=== PATIENT | male | born 1965 | race African-American/Black ===

== ENCOUNTER 2019-05-31 11:35 | Inpatient (IN) | payer BC ==
[~2019-05-31] VITALS: Ht 172.7 cm; Wt 87.7 kg
[2019-05-31 12:28] LABS: Hematocrit 45.8 % (41.0-53.0); Hemoglobin 15.2 g/dL (13.5-17.5); Mean Corpuscular Hgb Conc. 33.1 g/dL (32.0-36.0); Mean Corpuscular Volume 93.7 fL (80.0-100.0); Platelet Count (auto) 164 10^3/uL (140-450); Red Blood Cells 4.88 10^6/uL (4.5-5.90); Red Cell Distribution Width 13.7 % (11.8-14.3); White Blood Cell 9.7 10^3/uL (4.4-10.8)
[2019-05-31 12:33] LABS: Basophils % (manual) 0 (0.0-2.0); Blast Cells 0; Eosinophils % (manual) 0 (0-7); Metamyelocytes % 0; Myelocytes % 0; Promyelocytes % 0; Reactive Lymphocytes 0
[2019-05-31 12:43] LABS: Albumin 3.8 g/dL (3.4-5.0); Anion Gap 5 (5-15); Blood Urea Nitrogen 14 mg/dL (7-18); Calcium 9.1 mg/dL (8.5-10.1); Carbon Dioxide 28 mmol/L (21-32); Chloride 101 mmol/L (98-107); Glucose 82 mg/dL (74-106); Potassium 4.2 mmol/L (3.5-5.1); Sodium 134 mmol/L (136-145)
[2019-05-31 12:48] LABS: Alanine Aminotransferase 39 U/L (16-61); Alkaline Phosphatase 69 U/L (45-117); Aspartate Aminotransferase 35 U/L (15-37); BUN/Creatinine Ratio 9.3; Bilirubin, Total 0.4 mg/dL (0.2-1.0); GFR African American 62 mL/min; GFR Non-African American 51 mL/min; Total Protein 7.9 g/dL (6.4-8.2)
[2019-05-31 13:27] LABS: Band Neutrophils % (manual) 2; Lymphocytes % (manual) 9 (10.0-50.0); Monocytes % (manual) 6 (0-12)
[2019-05-31] MEDS ORDERED: ONDANSETRON HCL 4 MG/2 ML VIAL IV PRN (14:45)
[2019-05-31] MEDS ORDERED: VANCOMYCIN PER PHARMACY 0 MG IV SCH (14:45)
[2019-05-31] MEDS ORDERED: HYDROcodone-ACET 5/325MG TAB PO PRN (14:45)
[2019-05-31] MEDS ORDERED: MORPHINE SULF INJ 2 MG/ML SYRINGE 1ML IV PRN ×2 (14:45)
[2019-05-31] MEDS ORDERED: IPRATROPIUM BROM 0.5 MG/2.5ML INH SOL NEB SCH (14:45)
[2019-05-31] MEDS ORDERED: ACETAMINOPHEN 500 MG TAB PO PRN (14:45)
[2019-05-31] MEDS ORDERED: NITROGLYCERIN 0.4 MG SL TAB SL PRN (14:45)
[2019-05-31] MEDS ORDERED: AZITHROMYCIN 500MG/ 250ML 250 ML IV SCH ×2 (15:00→16:00)
[2019-05-31] MEDS: cefTRIAXone 1GM/50ML D5W 50 ML IV SCH (15:18)
[2019-05-31] MEDS: FLUCONAZOLE 100 MG TAB PO SCH (15:18)
[2019-05-31] MEDS: ALBUTEROL SULF 2.5 MG/0.5ML(0.5%) NEB SOLN NEB SCH (18:00)
[2019-05-31 18:30] VITALS: BP 184/104
[2019-05-31] MEDS: VANCOMYCIN 1GM/250ML 250 ML IV SCH (18:39)
[2019-05-31] MEDS: AZITHROMYCIN 500MG/ 250ML 250 ML IV SCH (20:00)
[2019-05-31] MEDS: SODIUM CHLORIDE 0.9% 1,000 ML IV SCH (20:25)
[2019-05-31 20:48] VITALS: BP 152/90
[2019-05-31 21:56] VITALS: BP 152/90
[2019-06-01] VITALS (7 sets, daily range): BP systolic 134–160; BP diastolic 85–105
[2019-06-01] MEDS: IPRATROPIUM BROM 0.5 MG/2.5ML INH SOL NEB SCH ×2 (00:12→20:09)
[2019-06-01] MEDS: BUDESONIDE (INHALATION) 0.5 MG/2 ML NEB NEB SCH (00:13)
[2019-06-01] MEDS: SODIUM CHLORIDE 0.9% 1,000 ML IV SCH ×3 (04:29→20:45)
[2019-06-01 06:32] LABS: Basophils # (auto) 0 uL; Basophils % (auto) 1.1 % (0.0-2.0); Eosinophils # (auto) 0 uL; Hematocrit 42.9 % (41.0-53.0); Hemoglobin 14.8 g/dL (13.5-17.5); Lymphocytes # (auto) 0.8 uL; Lymphocytes % (auto) 18.5 % (10.0-50.0); Mean Corpuscular Hemoglobin 32.1 pg (28.0-32.0); Mean Corpuscular Hgb Conc. 34.5 g/dL (32.0-36.0); Monocytes # (auto) 0.7 uL; Monocytes % (auto) 17.9 % (0.0-12.0); Neutrophils # (auto) 2.6 uL; Neutrophils % (auto) 62.5 % (37.0-80.0); Nucleated Red Blood Cells % 0.1 %; Platelet Count (auto) 145 10^3/uL (140-450); Red Blood Cells 4.61 10^6/uL (4.5-5.90); Red Cell Distribution Width 13.4 % (11.8-14.3); White Blood Cell 4.1 10^3/uL (4.4-10.8)
[2019-06-01 06:50] LABS: Calcium 8.7 mg/dL (8.5-10.1)
[2019-06-01 06:55] LABS: BUN/Creatinine Ratio 13.1
[2019-06-01] MEDS: VANCOMYCIN 1GM/250ML 250 ML IV SCH ×2 (08:30→22:28)
[2019-06-01] MEDS: ENOXAPARIN SOD 40 MG/0.4 ML SYRINGE SC SCH (10:00)
[2019-06-01] MEDS: FLUCONAZOLE 100 MG TAB PO SCH (11:13)
[2019-06-01] MEDS: cefTRIAXone 1GM/50ML D5W 50 ML IV SCH (11:13)
[2019-06-01] MEDS: amLODIPine BESYLATE 5 MG TAB PO SCH (11:13)
[2019-06-01] MEDS: FAMOTIDINE 20 MG TAB PO SCH (11:14)
[2019-06-01] MEDS: OSELTAMIVIR 30 MG CAP PO SCH (11:14)
[2019-06-01] MEDS: ALBUTEROL SULF 2.5 MG/0.5ML(0.5%) NEB SOLN NEB SCH (20:09)
[2019-06-01] MEDS: AZITHROMYCIN 500MG/ 250ML 250 ML IV SCH (20:36)
[2019-06-02 04:55] VITALS: BP 130/79
[2019-06-02] MEDS: SODIUM CHLORIDE 0.9% 1,000 ML IV SCH (06:33)
[2019-06-02] MEDS: IPRATROPIUM BROM 0.5 MG/2.5ML INH SOL NEB SCH ×2 (07:10→12:04)
[2019-06-02] MEDS: BUDESONIDE (INHALATION) 0.5 MG/2 ML NEB NEB SCH (07:10)
[2019-06-02] MEDS: ALBUTEROL SULF 2.5 MG/0.5ML(0.5%) NEB SOLN NEB SCH ×2 (07:10→12:04)
[2019-06-02 09:00] VITALS: BP 150/95
[2019-06-02] MEDS: ENOXAPARIN SOD 40 MG/0.4 ML SYRINGE SC SCH (10:00)
[2019-06-02] MEDS: OSELTAMIVIR 30 MG CAP PO SCH (10:13)
[2019-06-02] MEDS: amLODIPine BESYLATE 5 MG TAB PO SCH (10:14)
[2019-06-02] MEDS: FLUCONAZOLE 100 MG TAB PO SCH (10:15)
[2019-06-02] MEDS: FAMOTIDINE 20 MG TAB PO SCH (10:15)
[2019-06-02] MEDS: cefTRIAXone 1GM/50ML D5W 50 ML IV SCH (10:16)
[2019-06-02] MEDS: VANCOMYCIN 1GM/250ML 250 ML IV SCH (12:00)
[2019-06-02 12:01] VITALS: BP 150/95
== END 2019-06-02 13:00 | disposition home or self-care (01) | DRG 193 ==
LOC: ER 11:35 → TELE 11:36 → TELE-WESTW 20:28
PROVIDERS: ADMIT Nurse Practitioner Acute Care; ATTEND Family Medicine
DX: J10.00 Influenza due to other identified influenza virus with unspecified type of pneumonia (principal); J96.01 Acute respiratory failure with hypoxia; B38.0 Acute pulmonary coccidioidomycosis; E66.9 Obesity, unspecified; F17.210 Nicotine dependence, cigarettes, uncomplicated; I12.9 Hypertensive chronic kidney disease with stage 1 through stage 4 chronic kidney disease, or unspecified chronic kidney disease; N18.3 Chronic kidney disease, stage 3 (moderate); Z68.31 Body mass index [BMI] 31.0-31.9, adult; Z83.3 Family history of diabetes mellitus; Z82.49 Family history of ischemic heart disease and other diseases of the circulatory system; Z80.9 Family history of malignant neoplasm, unspecified; I16.0 Hypertensive urgency; R91.8 Other nonspecific abnormal finding of lung field
CPT/HCPCS: 36415; 71045; 71046; 71250; 80048; 80053; 80202; 83605; 84484; 85007; 85025; 85027; 86635; 86703; 86738; 87040; 87081; 87278; 87804; 94640; 96365; 96367; 96375; G0378; G9035; J0696

== ENCOUNTER 2023-01-23 19:10 | Emergency (ER) | payer BC ==
[~2023-01-23] VITALS: Ht 172.7 cm; Wt 96.3 kg
[2023-01-23] MEDS ORDERED: KETOROLAC TROMETH 60MG/2ML VIAL IM ONE (21:30)
[2023-01-23 22:06] LABS: Basophils # (auto) 0.1 10 ^3/uL (0-0.2); Basophils % (auto) 1.2 % (0.0-2.0); Eosinophils # (auto) 0.3 10 ^3/uL (0-0.8); Lymphocytes # (auto) 2.1 10 ^3/uL (0.4-5.4); Lymphocytes % (auto) 40.6 % (10.0-50.0); Mean Corpuscular Hemoglobin 30.7 pg (28.0-32.0); Mean Corpuscular Hgb Conc. 33.4 g/dL (32.0-36.0); Mean Corpuscular Volume 91.7 fL (80.0-100.0); Monocytes # (auto) 0.4 10 ^3/uL (0-1.3); Monocytes % (auto) 7.6 % (0.0-12.0); Neutrophils # (auto) 2.4 10 ^3/uL (1.6-8.6); Neutrophils % (auto) 45.6 % (37.0-80.0); Nucleated Red Blood Cells % 0.1 %; Red Cell Distribution Width 14.3 % (11.8-14.3); White Blood Cell 5.2 10^3/uL (4.4-10.8)
[2023-01-23 22:24] LABS: Alanine Aminotransferase 22 U/L (7-40); Albumin 4.6 g/dL (3.2-4.8); Alkaline Phosphatase 77 U/L (46-116); Anion Gap 6 (5-15); Aspartate Aminotransferase 8 U/L (13-40); BUN/Creatinine Ratio 11.7 (10.0-20.0); Blood Urea Nitrogen 15 mg/dL (9-23); Calcium 9.6 mg/dL (8.7-10.4); Carbon Dioxide 25 mmol/L (20-30); Chloride 108 mmol/L (98-107); Glucose 102 mg/dL (74-106); Lipase 55 U/L (12-53); Potassium 4.1 mmol/L (3.5-5.1); Sodium 139 mmol/L (136-145)
[2023-01-23 22:25] LABS: Bilirubin, Total 0.3 mg/dL (0.2-1.0); Total Protein 7.5 g/dL (5.7-8.2)
[2023-01-24] MEDS ORDERED: IBUP-1456 PO (02:40)
[2023-01-24] MEDS ORDERED: POLY335015 PO (02:40)
[2023-01-24 02:48] VITALS: BP 147/93; PULSE 79; RESP 16; TEMP 98.9; O2SAT 95
== END 2023-01-24 03:20 | disposition home or self-care (01) ==
LOC: ER 19:10
DX: S27.321A Contusion of lung, unilateral, initial encounter (principal); K59.00 Constipation, unspecified; K44.9 Diaphragmatic hernia without obstruction or gangrene; I10 Essential (primary) hypertension; F17.210 Nicotine dependence, cigarettes, uncomplicated; Z88.0 Allergy status to penicillin; X58.XXXA Exposure to other specified factors, initial encounter; Y93.89 Activity, other specified; Y92.89 Other specified places as the place of occurrence of the external cause; Y99.8 Other external cause status
CPT/HCPCS: 36415; 71101; 71250; 74150; 80053; 83690; 85025; 96372; 99285; J1885

== ENCOUNTER 2024-02-24 18:51 | Emergency (ER) | payer BC ==
[~2024-02-24] VITALS: Ht 172.7 cm; Wt 95.0 kg
[~2024-02-24 18:51] MED LIST: IBUP-1456 PO; POLY335015 PO
--- NOTE | 2024-02-24 19:38 | ED.PDOC ---
History of Present Illness HPI Comments 58-year-old male who came to ER for headaches. Patient does have history of hypertension and dyslipidemia. States for the past few hours he has been having, throbbing, constant frontal headaches, associated blurring of vision, dizziness, nausea, vomiting, chest discomfort. States his blood pressure is elevated, SBP >160 at home. Persistence of symptoms prompted patient to come to the ER. Chief Complaint: Headaches Time Seen by MD: 19:37 Primary Care Provider: DIAZ Reviewed Notes: Nurses Notes Allergies: Coded Allergies: Penicillins (Verified Allergy, Severe, 05/31/19) Home Meds Active Scripts Ibuprofen (Ibuprofen) 800 Mg Tab, 1 TAB PO TID PRN for 14 Days, #42 TAB 1 Refill Prov:REY BAKER [employer]LESS SALES REPRESENTATIVE 01/24/23 Polyethylene Glycol 3350 (Miralax) 17 Gm Pow, 17 GM PO DAILY for 5 Days, #5 POW Prov:REY BAKER [employer]LESS SALES REPRESENTATIVE 01/24/23 Information Source: Patient Mode of Arrival: Wheelchair Severity: Moderate Timing: Hours Duration: Since onset Prehospital treatment: None Past Medical History PAST MEDICAL HISTORY: High Lipids, HTN Surgical History: Denies all surgeries Family History Family History: Family hx of DM, Family hx of Cancer, Family hx of HTN Social History Smoker: Cigarettes Alcohol: Occasionally Drugs: Denies Drug Use Lives In: Home Constitutional: reports: weakness; denies: chills, diaphoresis, fatigue, fever, malaise, sweats, others EENTM: reports: blurred vision; denies: double vision, ear bleeding, ear discharge, ear drainage, ear pain, ear ringing, eye pain, eye redness, hearing loss, mouth pain, mouth swelling, nasal discharge, nose bleeding, nose congestion, nose pain, photophobia, tearing, throat pain, throat swelling, voice changes, others Respiratory: denies: cough, hemoptysis, orthopnea, SOB at rest, shortness of breath, SOB with excertion, stridor, wheezing, others Cardiovascular: reports: chest pain; denies: dizzy spells, diaphoresis, Dyspnea on exertion, edema, irregular heart beat, left arm pain, lightheadedness, palpitations, PND, syncope, others Gastrointestinal: reports: nausea, vomiting; denies: abdomen distended, abdominal pain, blood streaked bowels, constipated, diarrhea, dysphagia, difficulty swallowing, hematemesis, melena, poor appetite, poor fluid intake, rectal bleeding, rectal pain, others Genitourinary: denies: burning, dysuria, flank pain, frequency, hematuria, incontinence, penile discharge, penile sore, pain, testicle pain, testicle swelling, urgency, others Neurological: reports: dizziness, headache; denies: fainting, left sided numbness, left sided weakness, numbness, paresthesia, pre-existing deficit, right sided numbness, right sided weakness, seizure, speech problems, tingling, tremors, weakness, others Musculoskeletal: denies: back pain, gout, joint pain, joint swelling, muscle pain, muscle stiffness, neck pain, others Integumetry: denies: bruises, change in color, change in hair/nails, dryness, laceration, lesions, lumps, rash, wounds, others Allergic/Immunocompromised: denies: Difficulty Healing, Frequent Infections, Hives, Itching, others Hematologic/Lymphatic: denies: anemia, blood clots, easy bleeding, easy bruising, swollen glands, others Endocrine: denies: excessive hunger, excessive sweating, excessive thirst, excessive urination, flushing, intolerance to cold, intolerance to heat, unexplained weight gain, unexplained weight loss, others Psychiatric: denies: anxiety, bipolar disorder, depression, hopeless, panic disorder, schizophrenia, sleepless, suicidal, others Physical Exam General Appearance: No Apparent Distress, Normal HEENT: Normal ENT Inspection, Pharynx Normal, TMs Normal Neck: Full Range of Motion, Non-Tender, Normal, Normal Inspection Respiratory: Chest Non-Tender, Lungs Clear, No Accessory Muscle Use, No Respiratory Distress, Normal Breath Sounds Cardiovascular: No Edema, No JVD, No Murmur, No Gallop, Normal Peripheral Pulses, Regular Rate/Rhythm Breast Exam: Deferred Gastrointestinal: No Organomegaly, Non Tender, No Pulsatile Mass, Normal Bowel Sounds, Soft Genitalia: Deferred Pelvic: Deferred Rectal: Deferred Extremities: No calf tenderness, Normal capillary refill, Normal inspection, Normal range of motion, Non-tender, No pedal edema Musculoskeletal : Apperance: Normal Neurologic: Alert, nursing professor II-XII nml as Tested, No Motor Deficits, Normal Affect, Normal Mood, No Sensory Deficits Cerebellar Function: Normal Reflexes: Normal Skin: Dry, Normal Color, Warm Lymphatic: No Adenopathy Was a procedure done? Was a procedure done?: No Differential Dx Considerations may include: Anemia, electrolyte imbalance, vertigo, hypertensive urgency X-Ray, Labs, Meds, VS Vital Signs Date Time Temp Pulse Resp B/P (MAP) Pulse Ox O2 Delivery O2 Flow Rate FiO2 02/24/24 19:18 98.6 55 16 155/83 (107) 95 Lab Test 02/24/24 19:49 02/24/24 19:26 Range/Units White Blood Count 11.1 H 4.4-10.8 10^3/uL Red Blood Count 4.50 4.5-5.90 10^6/uL Hemoglobin 14.3 13.5-17.5 g/dL Hematocrit 41.4 41.0-53.0 % Mean Corpuscular Volume 91.9 80.0-100.0 fL Mean Corpuscular Hemoglobin 31.7 28.0-32.0 pg Mean Corpuscular Hemoglobin Concent 34.5 32.0-36.0 g/dL Red Cell Distribution Width 14.1 11.8-14.3 % Platelet Count 60 L 140-450 10^3/uL Mean Platelet Volume 7.8 6.9-10.8 fL Neutrophils (%) (Auto) 37.0-80.0 % Lymphocytes (%) (Auto) 10.0-50.0 % Monocytes (%) (Auto) 0.0-12.0 % Basophils (%) (Auto) 0.0-2.0 % Neutrophils # (Auto) 1.6-8.6 10 ^3/uL Lymphocytes # (Auto) 0.4-5.4 10 ^3/uL Monocytes # (Auto) 0-1.3 10 ^3/uL Differential Total Cells Counted Pending Neutrophils % (Manual) Pending Band Neutrophils % (Manual) Pending Lymphocytes % (Manual) Pending Monocytes % (Manual) Pending Eosinophils % (Manual) Pending Basophils % (Manual) Pending Metamyelocytes % (manual) Pending Myelocytes % (Manual) Pending Promyelocytes % (Manual) Pending Blast Cells % (Manual) Pending Reactive Lymphocytes Pending Platelet Estimate Pending Prothrombin Time 19.3 H 9.3-11.8 sec Prothrombin Time INR 1.91 H 0.9-1.15 Activated Partial Thromboplast Time 23.9 L 24.5-34.5 SEC Sodium Level 141 136-145 mmol/L Potassium Level 3.6 3.5-5.1 mmol/L Chloride Level 107 98-107 mmol/L Carbon Dioxide Level 24 20-31 mmol/L Anion Gap 10 5-15 Blood Urea Nitrogen 18 9-23 mg/dL Creatinine 1.26 0.700-1.30 mg/dL Glomerular Filtration Rate Calc 66 >90 mL/min BUN/Creatinine Ratio 14.3 10.0-20.0 Serum Glucose 131 H 74-106 mg/dL Calcium Level 10.2 8.7-10.4 mg/dL Magnesium Level 2.1 1.6-2.6 mg/dL Total Bilirubin 0.6 0.2-1.0 mg/dL Aspartate Amino Transferase (AST) 39 13-40 U/L Alanine Aminotransferase (ALT) 80 H 7-40 U/L Alkaline Phosphatase 84 46-116 U/L Troponin I High Sensitivity 489 *H </=54 ng/L Total Protein 6.7 5.7-8.2 g/dL Albumin 4.4 3.2-4.8 g/dL POC Glucose 111 H 70-106 mg/dl PROCEDURE(s): HWOCT - HEAD WITHOUT CONTRAST FINDINGS: There is a large multifocal mixed density predominantly acute intraparenchymal hemorrhage in the left temporal and occipital lobes, in a POWER SYSTEM DISPATCHER territory. The left temporal portion of the hemorrhage measures 2.2 x 5.4 x 4.0 cm on series 2, image 26 and sagittal image 43 and the left occipital portion of the hemorrhage measures 2.1 by 4.0 x 4.7 cm on series 2, image 31 and sagittal image 36. There is low-density vasogenic edema about the hemorrhages. There is intraventricular extension of hemorrhage predominantly in the left lateral ventricle. There is mass effect with sulcal effacement in the celg-iwgfeob-xtpt-right cerebral hemispheres. There is effacement of the basal cisterns. There is asymmetric left cerebral mass effect with a 5 mm byfk-sz-llwpa midline shift. The mastoid air cells and visualized paranasal sinuses are well-aerated. IMPRESSION: 1. Acute multifocal intracranial hemorrhage in the left temporal and occipital lobes which is in a left POWER SYSTEM DISPATCHER territory. A Consideration would be hemorrhagic transformation of acute/recent infarct. 2. Intraventricular extension of hemorrhage in the left lateral ventricle. 3. Diffuse cerebral mass effect and sulcal effacement, greater on the left resulting in a 5 mm dbfb-ub-xaviw midline shift and effacement of the basal cisterns concerning for descending transtentorial herniation Time of 1ST Reevaluation: 19:33 Reevaluation 1ST: Unchanged Patient Education/Counseling: Diagnosis, Treatment Family Education/Counseling: No Family Present Departure 1 Departure Time of Disposition: 20:30 Impression: Primary Impression: Intracranial hemorrhage Disposition: 02 SHORT TERM HOSPITAL Condition: Critical Critical Care Note Critical Care Time?: Yes (45 min-critical care time only) Stability Stability form required: No Heart Score Heart Score: Heart Score Response (Comments) Value History N/A 0 EKG N/A 0 Age N/A 0 Risk Factors N/A 0 Troponin N/A 0 Total 0 I personally scribed for MARIETTA SAENZ MD (NII) on 02/24/24 at 19:38. Electronically submitted by Tesfaye Plata ([email or web address]). I personally scribed for MARIETTA SAENZ MD (NII) on 02/24/24 at 20:23. Electronically submitted by Tesfaye Plata ([email or web address]). I personally scribed for MARIETTA SAEZN MD (NII) on 02/24/24 at 20:58. Electronically submitted by Tesfaye Plata ([email or web address]). MARIETTA SAENZ MD Feb 24, 2024 19:38
[2024-02-24 20:18] LABS: Hematocrit 41.4 % (41.0-53.0); Hemoglobin 14.3 g/dL (13.5-17.5); Mean Corpuscular Hemoglobin 31.7 pg (28.0-32.0); Mean Corpuscular Hgb Conc. 34.5 g/dL (32.0-36.0); Mean Corpuscular Volume 91.9 fL (80.0-100.0); Platelet Count (auto) 60 10^3/uL (140-450); Red Cell Distribution Width 14.1 % (11.8-14.3); White Blood Cell 11.1 10^3/uL (4.4-10.8)
[2024-02-24 20:24] LABS: Basophils % (manual) 0 (0.0-2.0); Myelocytes % 0; Promyelocytes % 0; Reactive Lymphocytes 0
[2024-02-24 20:30] VITALS: PULSE 49; RESP 25; O2SAT 93
[2024-02-24 20:32] LABS: Alanine Aminotransferase 80 U/L (7-40); Albumin 4.4 g/dL (3.2-4.8); Alkaline Phosphatase 84 U/L (46-116); Anion Gap 10 (5-15); Aspartate Aminotransferase 39 U/L (13-40); BUN/Creatinine Ratio 14.3 (10.0-20.0); Bilirubin, Total 0.6 mg/dL (0.2-1.0); Blood Urea Nitrogen 18 mg/dL (9-23); Calcium 10.2 mg/dL (8.7-10.4); Carbon Dioxide 24 mmol/L (20-31); Chloride 107 mmol/L (98-107); Glucose 131 mg/dL (74-106); Magnesium 2.1 mg/dL (1.6-2.6); Potassium 3.6 mmol/L (3.5-5.1); Sodium 141 mmol/L (136-145); Total Protein 6.7 g/dL (5.7-8.2)
[2024-02-24 20:48] LABS: INR 1.91 (0.9-1.15); Partial Thromboplastin Time 23.9 SEC (24.5-34.5); Prothrombin Time 19.3 sec (9.3-11.8)
--- NOTE | 2024-02-24 20:56 | DVH ---
CLINICAL HISTORY: severe headache TECHNIQUE: Helical imaging carried out from skull base to vertex without intravenous contrast. This e xam was performed according to our departmental dose optimization program. Up-to-date CT equipment an d radiation dose reduction techniques are utilized as appropriate. COMPARISON: None FINDINGS: There is a large multifocal mixed density predominantly acute intraparenchymal hemorrhage in the left temporal and occipital lobes, in a [employer] territory. The left temporal portion of the hemorrhage measur es 2.2 x 5.4 x 4.0 cm on series 2, image 26 and sagittal image 43 and the left occipital portion of t he hemorrhage measures 2.1 by 4.0 x 4.7 cm on series 2, image 31 and sagittal image 36. There is low -density vasogenic edema about the hemorrhages. There is intraventricular extension of hemorrhage pre dominantly in the left lateral ventricle. There is mass effect with sulcal effacement in the left-gre eszu-auwk-lbfvq cerebral hemispheres. There is effacement of the basal cisterns. There is asymmetric left cerebral mass effect with a 5 mm qirw-iq-vdblg midline shift. The mastoid air cells and visualized paranasal sinuses are well-aerated. IMPRESSION: 1. Acute multifocal intracranial hemorrhage in the left temporal and occipital lobes which is in a le ft [employer]ER territory. A Consideration would be hemorrhagic transformation of acute/recent infarct. 2. Intraventricular extension of hemorrhage in the left lateral ventricle. 3. Diffuse cerebral mass effect and sulcal effacement, greater on the left resulting in a 5 mm left-t o-right midline shift and effacement of the basal cisterns concerning for descending transtentorial h erniation
[2024-02-24] MEDS: ONDANSETRON ODT 4 MG TAB PO ONE (20:57)
[2024-02-24] MEDS: HYDROcodone-ACET 10/325MG TAB PO ONE (20:57)
[2024-02-24] MEDS: hydrALAZINE HCL 20 MG/ML VL IV ONE ×2 (20:58→21:39)
[2024-02-24] MEDS: diphenhdrAMINE HCL 50 MG/1 ML VL IM ONE (21:20)
[2024-02-24] MEDS: METOCLOPRAMIDE HCL 5MG/ml INJ 2ml VIAL IV ONE (21:20)
[2024-02-24 21:26] VITALS: TEMP 98.4; O2SAT 95
[2024-02-24 21:30] VITALS: BP 178/96; PULSE 53; RESP 25
[2024-02-24] MEDS: MORPHINE SULFATE 4 MG/ML SYR/VIAL IV ONE (21:30)
[2024-02-24 23:24] LABS: Band Neutrophils % (manual) 4; Eosinophils % (manual) 1 (0-7); Lymphocytes % (manual) 8 (10.0-50.0); Metamyelocytes % 1; Monocytes % (manual) 37 (0-12)
[2024-02-24 23:25] LABS: Platelet Estimate Decreased
[2024-02-24 23:27] LABS: Blast Cells 27
--- NOTE | 2024-02-25 11:56 | ECG ---
[facility] Test Date: 2024-02-24 Test Time: 19:44:45 Pat Name: LE AGUILERA Department: ER Room: Gender: M Upfitter: : 1965 Requested By: MARIETTA SAENZ Order Number: [id number] Reading MD: Matt Zapata Measurements Intervals [place] Rate: 49 P: 76 TN: 171 QRS: 34 QRSD: 99 T: 26 QT: 455 QTc: 411 Interpretive Statements Slow sinus arrhythmia Left ventricular hypertrophy ST elevation, consider anterior injury Baseline wander in lead(s) V6 Electronically Signed On 02-25-2024 17:46:35 PST by Matt Zapata Please click the below link to view image of tracing.
== END 2024-02-24 20:22 | disposition short-term general hospital (02) ==
LOC: ER 18:51
DX: I62.9 Nontraumatic intracranial hemorrhage, unspecified (principal); I10 Essential (primary) hypertension; E78.5 Hyperlipidemia, unspecified; F17.210 Nicotine dependence, cigarettes, uncomplicated; Z88.0 Allergy status to penicillin; Z79.899 Other long term (current) drug therapy
CPT/HCPCS: 36415; 70450; 80053; 82962; 83735; 84484; 85007; 85027; 85610; 85730; 93005; 96372; 96374; 96375; 96376; 99291; J0360; J1200; J2765; Q0162